=== PATIENT | female | born 1985 | race Two or more races ===

== ENCOUNTER 2022-09-03 11:46 | Outpatient (REF) | payer OTHER, SELFPAY ==
--- NOTE | ~2022-09-03 | XR_ITS ---
EXAMINATION: XR FOOT, RIGHT CLINICAL INFORMATION: Edema COMPARISON: None available. TECHNIQUE: 3 views of the right foot. FINDINGS: Soft tissues are grossly normal. No radiographic evidence of soft tissue edema, soft tissue gas or radiopaque foreign body. Bones have normal alignment. Joint spaces are normal. No erosions or periostitis. No fracture or subluxation. A very small Achilles insertion enthesophyte is noted. XR/XR foot RT 2V IMPRESSION: Normal right foot.
== END 2022-09-03 11:47 | disposition home or self-care (01) ==
LOC: HO.HMGCX 11:46
PROVIDERS: PCP Nurse Practitioner Family; Visit Provider Physician Assistant
DX: R60.9 Edema, unspecified (principal)
CPT/HCPCS: 73620

== ENCOUNTER 2022-10-13 09:23 | Outpatient (AMB) | payer OTHER, SELFPAY ==
--- NOTE | 2022-10-13 10:33 | MHC.OFFWIV ---
Intake Vital Signs 10/13/22 10:50 BP 130/80 Blood Pressure Location Lt brachial Position Sitting Pulse 85 Pulse Source Pulse Oximeter Temp 98 F Temp Source Temporal Artery Scan Pulse Oximetry (%) 98 Oxygen Delivery Method Room Air Intake Visit Reasons: EP Toe pain/swelling, broken? [phone] Intake Note: Patient here for left 2nd toe swelling questioning if its broken. she states its been about a month that it has been present and now its hurting a lot. Patient Tobacco Use Status: Never used Tobacco Allergies aspirin Allergy (Mild, Verified 10/13/22 11:13) Difficulty Breathing Medication List - Last Reconciled 10/13/22 by Fredy Sanchez MD epinephrine IM DIRECTED Do you need a note to return to daycare/school/sports/work: Yes HPI EP Toe pain/swelling, broken? [phone] HPI Details 36-year-old female presents to the office for a sick visit. Patient is complaining of pain and swelling in the left foot. She takes classes for self defense and was practicing a kick. She injured her foot a week ago. [facility] Social History Patient Tobacco Use Status: Never used Tobacco Physical Exam Vital Signs: Last Vital Signs Temp 98 F 10/13/22 10:50 Pulse 85 10/13/22 10:50 BP 130/80 10/13/22 10:50 Pulse Ox 98 10/13/22 10:50 Oxygen Delivery Method Room Air 10/13/22 10:50 Extrem Other: Left foot: Tenderness and pain over the 3rd and 4th toes. No visible swelling. Assessment & Plan Assessment & Plan (1) Contusion of foot, left: Code(s): S90.32XA - Contusion of left foot, initial encounter Plan: X-ray images were personally reviewed by me. No fractures seen. Reassurance. Patient was advised to keep the foot elevated. Orders: Orders XR foot LT min 3V Today S90.32XA - Contusion of left foot, initial encounter Coding Level of Care Code Est Pt Level 4 (78145) Diagnoses Contusion of foot, left S90.32XA
[2022-10-13 10:50] VITALS: BP 130/80; PULSE 85; TEMP 36.6; O2SAT 98
== END 2022-10-13 11:21 | disposition home or self-care (01) ==
PROVIDERS: PCP Nurse Practitioner Family; Visit Provider Internal Medicine
DX: S90.32XA Contusion of left foot, initial encounter (principal)
CPT/HCPCS: 99214

== ENCOUNTER 2022-10-13 10:57 | Outpatient (REF) | payer OTHER, SELFPAY ==
--- NOTE | ~2022-10-13 | XR_ITS ---
EXAMINATION: XR FOOT, LEFT CLINICAL INFORMATION: Contusion COMPARISON: None available. TECHNIQUE: AP, lateral, and oblique views of the left foot. FINDINGS: The bones and soft tissues are normal. No fracture. Alignment is anatomic. Joint spaces are maintained. Small calcaneal spurs. XR/XR foot LT min 3V IMPRESSION: Small calcaneal spurs.
== END 2022-10-13 10:58 | disposition home or self-care (01) ==
LOC: HO.HMGCX 10:57
PROVIDERS: PCP Nurse Practitioner Family; Visit Provider Internal Medicine
DX: S90.32XA Contusion of left foot, initial encounter (principal)
CPT/HCPCS: 73630

== ENCOUNTER 2022-10-22 09:53 | Outpatient (AMB) | payer OTHER, SELFPAY ==
--- NOTE | 2022-10-22 09:55 | MHC.OFFWIV ---
Intake Vital Signs 10/22/22 09:57 Height 5 ft 4 in BP 100/74 Blood Pressure Location Rt brachial Position Sitting Pulse 102 H Pulse Source Pulse Oximeter Temp 98.3 F Temp Source Oral Pulse Oximetry (%) 97 Oxygen Delivery Method Room Air Intake Visit Reasons: EP work note Intake Note: Pt is here today for clearance letter. Patient Tobacco Use Status: Never used Tobacco Allergies aspirin Allergy (Mild, Verified 10/22/22 09:58) Difficulty Breathing Do you need a note to return to daycare/school/sports/work: Yes HPI HPI Comments History of Present Illness Details The patient presents to urgent care for evaluation of medical clearance. She states that she developed a contusion to her foot about a week ago after self-defense class and has been unable to drive since that time. She reports now that she is able to drive but only with using open toed shoes. She is requesting a no specifying that she can return to work, driving use open toed shoes. As a secondary complaint patient reports a dry cough for about 3 months. She has a history of asthma and allergies and has been feeling otherwise well no fever no shortness of breath. No chest pain PFSH Social History Patient Tobacco Use Status: Never used Tobacco Review of Systems Const Reports headache(s) and Denies increased appetite ENT Reports headache(s), Reports nasal obstruction, Denies disequilibrium, Reports post nasal drip, Reports sinus pain and Denies sore throat Card Denies radiating jaw, neck or arm pain and Denies dyspnea Resp Denies hemoptysis and Denies dyspnea Neuro Reports headache(s) and Denies disequilibrium Physical Exam Vital Signs: Last Vital Signs Temp 98.3 F 10/22/22 09:57 Pulse 102 H 10/22/22 09:57 BP 100/74 10/22/22 09:57 Pulse Ox 97 10/22/22 09:57 Oxygen Delivery Method Room Air 10/22/22 09:57 Const General: healthy appearing and no acute distress Chest Chest palpation & inspection: normal inspection of the chest Resp Effort & Inspection: normal respiratory effort and able to speak in complete sentences Auscultation: clear to auscultation bilaterally Assessment & Plan Assessment & Plan (1) Cough: Code(s): R05.9 - Cough, unspecified Plan 1. Patient medically cleared to drive work Note will be provided 2. Patient's cough likely chronic secondary to allergies. Recommend trying Claritin. Lungs are clear today. Coding Level of Care Code Est Pt Level 3 (45458) Diagnoses Cough R05.9
[2022-10-22 09:57] VITALS: BP 100/74; PULSE 102; TEMP 36.8; O2SAT 97
== END 2022-10-22 10:20 | disposition home or self-care (01) ==
PROVIDERS: PCP Nurse Practitioner Family; Visit Provider Emergency Medicine
DX: R05.9 Cough, unspecified (principal)
CPT/HCPCS: 99213

== ENCOUNTER 2023-01-28 12:05 | Outpatient (AMB) | payer OTHER, SELFPAY ==
--- NOTE | 2023-01-28 12:12 | AM.OFFWIN_ITS ---
Intake Vital Signs 01/28/23 12:15 Height 5 ft 4 in Weight 144 lb BMI 24.7 BP 104/64 Blood Pressure Location Lt brachial Position Sitting Pulse 76 Pulse Source Pulse Oximeter Temp 98.2 F Temp Source Oral Pulse Oximetry (%) 98 Oxygen Delivery Method Room Air Intake Visit Reasons: EST/cold/flu symptoms Intake Note: Pt is here today c/o H/A, coughing up phelgm and says was exposed to COVID on Wednesday from a client Patient Tobacco Use Status: Current someday Tobacco user Allergies aspirin Allergy (Mild, Verified 01/28/23 12:15) Difficulty Breathing HPI HPI Comments History of Present Illness Details Patient is a 38-year-old female in today for sick visit. Patient has a past medical history significant for asthma. She reports headache, cough with sputum production, and sore throat x5 days. Patient reports she was recently around her client who tested positive for COVID. She has not tried any medications for symptoms. She denies fever, malaise, or shortness of breath. Patient's TM visible, pearly wilson no erythema or effusion. No sinus tenderness, clear nasal discharge. Oral mucosa is normal. No petechiae of throat. No lymphadenopathy. Normal range of motion of neck. Lung sounds clear bilaterally. Patient likely has upper respiratory infection. Unlikely respiratory distress syndrome, epiglottitis, or threat to airway. Plan will be to prescribe azithromycin, albuterol inhaler to be used as needed, and to treat symptoms with Tylenol. Patient educated that if she develops shortness of breath to return to the walk-in. REPLACED BY [facility] Social History Patient Tobacco Use Status: Current someday Tobacco user Review of Systems Const Details: Constitutional : No Weight loss, No Fever, No Chills, No Fatigue, No Malaise ENT/Mouth : Admits sore throat, Admits Rhinorrhea. TM intact, pearlly wilson. Eyes: No Swelling, No Redness Cardiovascular : No Chest Pain, No SOB, No Dyspnea on Exertion, Respiratory : Admits Cough, Admits Sputum, No Wheezing Gastrointestinal : No Nausea, No Vomiting, No Diarrhea, No Constipation, No abdominal Pain, No Hematochezia, No Melena Heme/Lymph: No Lymphadenopathy All other systems reviewed and are negative All systems reviewed & are unremarkable except as noted in HPI and below Physical Exam Vital Signs: Vital signs stable Appearance: Alert.? Oriented X3.? No acute distress.? Head: Normocephalic, atraumatic, no step-offs or deformities Eyes: No Erythema. ENT: Pharynx erythema.?No Petechiae. TM intact, pearly wilson. No sinus tenderness. Neck: Normal inspection.? Neck supple.?No Lymphadenopathy. CVS: Normal heart rate and rhythm.? Pulses normal.? Respiratory: No respiratory distress.? Breath sounds normal.? Neuro: Oriented X 3.? No motor deficit.? No sensory deficit. CN 2-12 intact Assessment & Plan Assessment & Plan (1) Upper respiratory infection: Code(s): J06.9 - Acute upper respiratory infection, unspecified Qualifiers: URI type: acute pharyngitis Plan Will give azithromycin, patient instructed to take entire course. Will give albuterol inhaler, patient does not have 1 at home. Patient also instructed to take Tylenol as needed for symptoms. Instructed to return to walk-in if patient develops shortness of breath. Orders: Orders SARS-CoV2/FLU/RSV Today J06.9 - Acute upper respiratory infection, unspecified Medications: New azithromycin For 250 mg dose pack: take 500 mg today (day 1), then 250 mg for 4 days (days 2-5) PO 6 tabs 0RF albuterol sulfate 90 mcg/actuation 2 puffs inhalation Q6H PRN 6.7 grams 0RF shortness of breath or wheezing Coding Level of Care Code New Pt Level 3 (67216) Diagnoses Upper respiratory infection J06.9 URI type: acute pharyngitis Time Spent (min) 20
[2023-01-28 12:15] VITALS: BP 104/64; PULSE 76; TEMP 36.8; O2SAT 98; BMI 24.7
== END 2023-01-28 15:21 | disposition home or self-care (01) ==
PROVIDERS: PCP Nurse Practitioner Family; Visit Provider Nurse Practitioner Primary Care
DX: J06.9 Acute upper respiratory infection, unspecified (principal)
CPT/HCPCS: 99203

== ENCOUNTER 2023-01-28 16:10 | Outpatient (REF) | payer OTHER, SELFPAY ==
[2023-01-28 17:14] LABS: Influenza A PCR NEGATIVE (Negative); Influenza B PCR NEGATIVE (Negative); Resp Syncy Virus RNA Qual PCR NEGATIVE (Negative); SARS COV2 PCR INHOUSE NEGATIVE (Negative)
== END 2023-01-28 16:11 | disposition home or self-care (01) ==
LOC: HO.LNP 16:10
PROVIDERS: Visit Provider Nurse Practitioner Primary Care
DX: J06.9 Acute upper respiratory infection, unspecified (principal); Z11.52 Encounter for screening for COVID-19
CPT/HCPCS: 0241U

== ENCOUNTER 2023-03-02 13:05 | Outpatient (AMB) | payer OTHER, SELFPAY ==
--- NOTE | 2023-03-02 13:10 | MHC.OFFWIV ---
Intake Vital Signs 03/02/23 13:14 Height 5 ft 4 in BP 106/66 Blood Pressure Location Rt brachial Position Sitting Pulse 78 Pulse Source Pulse Oximeter Pulse Oximetry (%) 98 Oxygen Delivery Method Room Air Intake Visit Reasons: EP, right foot pain Intake Note: pt is here for right foot pain due to injury at [employer] Patient Tobacco Use Status: Current someday Tobacco user Allergies aspirin Allergy (Mild, Verified 03/02/23 13:14) Difficulty Breathing Do you need a note to return to daycare/school/sports/work: Yes HPI HPI Comments History of Present Illness Details [id number] 38-year-old female presents with right foot pain status post injury at [employer] yesterday, patient reports she went to do a kick and she kicks in bodies elbow, since then has been experiencing pain overlying the 4th and 5th metatarsals. Reports some overlying bruising and swelling. Has been using crutches which she had at home. Has been using ice which has been helping. Is not requesting anything for pain would like an x-ray. Denies numbness and tingling. Physical exam tenderness to palpation overlying the 4th and 5th metatarsals of right foot. 2+ dorsalis pedis, anterior tibialis, posterior tibialis pulses equal bilateral normal capillary refill to bilateral lower extremities normal sensation distally, no footdrop. There is slight ecchymosis noted overlying the 4th and 5th right metatarsals. Concerns for metatarsal for and 5 fracture versus dislocation versus contusion versus sprain or strain. Unlikely neurovascular compromise, threat to limb Plan imaging upper her something for pain states she is allergic to aspirin and would just like to take Tylenol at home. Will give her a postop/walking shoe and she will continue to his crutches. Ortho consult placed. Educated patient on diagnosis and treatment plan, answered all question, patient verbalizes understanding. At this time patient will be discharged home, advised to return with new or worsening symptoms. Educated on worrisome signs and symptoms and when to return. At this time I feel comfortable discharge home. [facility] Social History Patient Tobacco Use Status: Current someday Tobacco user Review of Systems Const Details: Constitutional : No Weight loss, No Fever, No Chills, No Fatigue, No Malaise ENT/Mouth : No sore throat, No Rhinorrhea Eyes: No Eye Pain, No Swelling, No Redness Cardiovascular : No Chest Pain, No SOB, No Dyspnea on Exertion, No Orthopnea, No Edema, No Palpitations Respiratory : No Cough, No Sputum, No Wheezing Gastrointestinal : No Nausea, No Vomiting, No Diarrhea, No Constipation, No abdominal Pain, No Hematochezia, No Melena Genitourinary : No Dysuria, No Urinary Frequency, No Hematuria, Musculoskeletal : + joint pain, No Myalgias, No Joint Swelling Skin : No Skin Lesions, No rash Neuro : No Weakness, No Numbness, No Dizziness, No Headache Psych : No Anxiety/Panic, No Depression All other systems reviewed and are negative All systems reviewed & are unremarkable except as noted in HPI and below Physical Exam Vital Signs: Last Vital Signs Pulse 78 03/02/23 13:14 BP 106/66 03/02/23 13:14 Pulse Ox 98 03/02/23 13:14 Oxygen Delivery Method Room Air 03/02/23 13:14 vss Appearance: Alert.? Oriented X3.? No acute distress.? Head: Normocephalic, atraumatic, no step-offs or deformities Eyes: Pupils equal, round and reactive to light.? CVS: Normal heart rate and rhythm.? Pulses normal.? Respiratory: No respiratory distress.? Breath sounds normal.? Abdomen: Soft and nontender.? Skin: Skin warm and dry.? Normal skin color.? Normal skin turgor.? Extremities: No lower extremity edema.? No calf ttp. 5/5 strength to bilateral upper and lower extremities + tenderness to palpation overlying the 4th and 5th metatarsals of right foot. 2+ dorsalis pedis, anterior tibialis, posterior tibialis pulses equal bilateral normal capillary refill to bilateral lower extremities normal sensation distally, no footdrop. There is slight ecchymosis noted overlying the 4th and 5th right metatarsals. Neuro: Oriented X 3.? No motor deficit.? No sensory deficit. CN 2-12 intact Assessment & Plan Assessment & Plan (1) Right foot pain: Code(s): M79.671 - Pain in right foot Plan Take your medications as prescribed. If you were prescribed antibiotics today, it is important that you take your medication to their entirety, do not skip any doses, do not finish them early. Follow-up with your primary care provider this week. Return to the emergency department with new or worsening symptoms. Such as fevers, chills, chest pain, shortness of breath, nausea, vomiting, dizziness, headache, vision changes, lethargy In case of emergency call 911 Orders: Orders XR foot RT 2V Today M79.671 - Pain in right foot Referrals Orthopedics Referral M79.671 - Pain in right foot Coding Level of Care Code Est Pt Level 3 (02003) Diagnoses Right foot pain M79.671
[2023-03-02 13:14] VITALS: BP 106/66; PULSE 78; O2SAT 98
== END 2023-03-02 14:14 | disposition home or self-care (01) ==
PROVIDERS: PCP Nurse Practitioner Family; Visit Provider Physician Assistant
DX: M79.671 Pain in right foot (principal)
CPT/HCPCS: 99213

== ENCOUNTER 2023-03-02 13:47 | Outpatient (REF) | payer OTHER, SELFPAY ==
--- NOTE | ~2023-03-02 | XR_ITS ---
EXAMINATION: XR FOOT, RIGHT CLINICAL INFORMATION: Right foot pain COMPARISON: None available. TECHNIQUE: AP, lateral, and oblique views of the right foot. FINDINGS: The bones and soft tissues are normal. No fracture. Alignment is anatomic. Joint spaces are maintained. XR/XR foot RT 2V IMPRESSION: Normal right foot.
== END 2023-03-02 13:48 | disposition home or self-care (01) ==
LOC: HO.HMGCX 13:47
PROVIDERS: PCP Nurse Practitioner Family; Visit Provider Physician Assistant
DX: M79.671 Pain in right foot (principal)
CPT/HCPCS: 73620

== ENCOUNTER 2023-10-18 13:52 | Outpatient (AMB) | payer OTHER, SELFPAY ==
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
[2023-10-18 13:59] VITALS: BP 119/77; PULSE 78; RESP 14; TEMP 36.6; O2SAT 99; BMI 23.6
== END 2023-10-18 14:56 | disposition home or self-care (01) ==
PROVIDERS: PCP Nurse Practitioner Family; Visit Provider Physician Assistant Medical
DX: J30.89 Other allergic rhinitis (principal); J45.20 Mild intermittent asthma, uncomplicated; M54.9 Dorsalgia, unspecified; S19.83XA Other specified injuries of vocal cord, initial encounter; T74.91XA Unspecified adult maltreatment, confirmed, initial encounter; T78.2XXA Anaphylactic shock, unspecified, initial encounter
CPT/HCPCS: 96127; 99215; G2211

== ENCOUNTER 2023-10-20 08:51 | Outpatient (AMB) | payer OTHER, SELFPAY ==
[2023-10-20 08:52] VITALS: BMI 24.0
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
== END 2023-10-20 09:12 | disposition home or self-care (01) ==
PROVIDERS: PCP Nurse Practitioner Family; Visit Provider Surgery
DX: L76.32 Postprocedural hematoma of skin and subcutaneous tissue following other procedure (principal)
CPT/HCPCS: 99203

== ENCOUNTER → 2023-10-20 08:51 | Outpatient (BNVA) | payer OTHER, SELFPAY | PROVIDERS: PCP Nurse Practitioner Family; Visit Provider Surgery | DX: L76.32 Postprocedural hematoma of skin and subcutaneous tissue following other procedure (principal) | CPT/HCPCS: 99202 ==

== ENCOUNTER 2023-12-13 09:56 | Outpatient (AMB) | payer OTHER, SELFPAY ==
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
[2023-12-13 10:20] VITALS: BP 120/60; PULSE 61; RESP 16; TEMP 36.7; O2SAT 98; BMI 25.0
== END 2023-12-13 10:58 | disposition home or self-care (01) ==
PROVIDERS: PCP Physician Assistant Medical; Visit Provider Nurse Practitioner Family
DX: T74.91XA Unspecified adult maltreatment, confirmed, initial encounter (principal); R49.0 Dysphonia

== ENCOUNTER → 2023-12-13 09:56 | Outpatient (BNVA) | payer OTHER, SELFPAY | PROVIDERS: PCP Physician Assistant Medical; Visit Provider Nurse Practitioner Family | DX: T74.91XD Unspecified adult maltreatment, confirmed, subsequent encounter (principal); R49.0 Dysphonia | CPT/HCPCS: 99212 ==

== ENCOUNTER 2024-01-11 15:20 | Outpatient (REF) | payer OTHER, SELFPAY ==
--- NOTE | ~2024-01-11 | US_ITS ---
EXAMINATION: US PELVIS CLINICAL INFORMATION: Irregular menses COMPARISON: None available. TECHNIQUE: Ultrasound of the pelvis is performed using both transabdominal and transvaginal transducers along with Doppler. Transvaginal imaging is performed due to inadequate visualization transabdominally. FINDINGS: Uterus: The uterus is anteverted and anteflexed measuring 9.0 x 4.3 x 7.0 cm. The double wall endometrial thickness is 16 mm. The endometrium is heterogeneous and a small cystic area is seen within the endometrium. The uterus is smooth in contour and has normal myometrial echogenicity. No visible fibroid. Adnexa: Both ovaries are visualized. There is normal color flow to the adnexa. There is no ovarian torsion. There is no pelvic ascites or fluid collection. Right ovary measures 3.8 x 2.4 x 3.1 cm for a volume of 14.8 cc and contains a 2.3 cm benign cyst and a 1.6 cm corpus luteal cyst. Left ovary measures 2.1 x 1.0 x 3.6 cm for a volume of 3.8 cc US/US pelvic and transvaginal IMPRESSION: 1. Thickened heterogeneous endometrium with small cystic area. Further evaluation should be considered. 2. Benign right ovarian cysts. No follow-up is needed. Electronically signed by: Ricky Frankel MD 03/11/2024 01:36 PM [facility]
== END 2024-01-11 15:21 | disposition home or self-care (01) ==
LOC: HO.HMGCX 15:20
PROVIDERS: PCP Physician Assistant Medical; Visit Provider Obstetrics & Gynecology
DX: N92.6 Irregular menstruation, unspecified (principal)
CPT/HCPCS: 76830; 76856